=== PATIENT | female | born 1970 | race African-American/Black ===

== ENCOUNTER 2021-05-10 07:19 | Emergency (ER) | payer BC, OTHER ==
[~2021-05-10] VITALS: Ht 172.7 cm; Wt 129.0 kg
[2021-05-10 09:05] VITALS: BP 148/97
[2021-05-10] MEDS ORDERED: IBUP-2028 PO (10:17)
== END 2021-05-10 10:39 | disposition home or self-care (01) ==
LOC: ER 07:19
DX: S82.51XA Displaced fracture of medial malleolus of right tibia, initial encounter for closed fracture (principal); I10 Essential (primary) hypertension; Z98.890 Other specified postprocedural states; X58.XXXA Exposure to other specified factors, initial encounter; Y93.89 Activity, other specified; Y92.018 Other place in single-family (private) house as the place of occurrence of the external cause
CPT/HCPCS: 29515; 73590; 73610; 73630; 81025; 99284